=== PATIENT | female | born 1955 | race Caucasian/White ===

== ENCOUNTER → 2019-01-28 | Day surgery (SDC) | payer MEDICARE ==
[2019-01-27 14:42] LABS: BASOPHILS % 0.4 % (0.0-1.0); EOSINOPHILS # (AUTO) 0.1 (0.0-0.4); EOSINOPHILS % 1.1 % (0.0-6.0); HEMATOCRIT 31.5 % (34.2-44.1); HEMOGLOBIN 10.6 g/dL (12.0-16.0); LYMPHOCYTES # (AUTO) 0.8 (1.0-3.2); LYMPHOCYTES % 10.7 % (18.0-39.1); MEAN CORPUSCULAR HEMOGLOBIN 26.3 pg (28-32); MEAN CORPUSCULAR HGB CONC 33.7 g/dL (31-35); MEAN CORPUSCULAR VOLUME 78.2 fL (81-99); MONOCYTES # (AUTO) 0.7 (0.2-0.8); MONOCYTES % 9.4 % (4.4-11.3); NEUTROPHILS # (AUTO) 5.4 (2.1-6.9); NEUTROPHILS % 77.3 % (38.7-80.0); PLATELET COUNT 217 x10e3/uL (140-360); RED BLOOD COUNT 4.03 x10e6/uL (3.6-5.1); RED CELL DISTRIBUTION WIDTH 15.5 % (11.7-14.4)
--- NOTE | 2019-01-27 14:58 | Diagnostic Imaging Report ---
EXAM: CHEST 2 VIEWS DATE: 01/27/2019 1:53 PM INDICATION: Preoperative evaluation COMPARISON: None available. IMPRESSION:: The trachea is midline. There is a focal opacity identified within the right lung base measuring approximately 3.9 cm. Per chart review review, the patient has a history of right lung mass and this opacity may represent the known right lung mass. Recommend correlation with outside imaging or further evaluation with dedicated CT of the chest. Otherwise, there are minimal bibasilar opacities suggestive of atelectasis. There is no evidence for pneumothorax or significant pleural effusion. The cardiomediastinal silhouette and pulmonary vasculature are unremarkable. No acute osseous abnormality is identified. The surrounding soft tissues are unremarkable. Signed by: Dr. Tanmay Patel MD on 01/27/2019 2:55 PM
[2019-01-27 15:01] LABS: ANION GAP 17.1 mmol/L (8-16); BLOOD UREA NITROGEN 12 mg/dL (7-26); BUN/CREATININE RATIO 16 (6-25); CARBON DIOXIDE 20 mmol/L (22-29); CHLORIDE 94 mmol/L (98-107); CREATININE, SERUM 0.77 mg/dL (0.57-1.11); EST GLOMERULAR FILTRATION RATE > 60 ML/MIN (60-); GLUCOSE 100 mg/dL (74-118); POTASSIUM 4.1 mmol/L (3.5-5.1); SODIUM 127 mmol/L (136-145)
[~2019-01-28] MED LIST: ATORVASTATIN CA20 MG PO; BIOTIN2500 MCG PO; BUPIVACAINE 0.25%/EPI 30ML SDV INJ ONE; BUPROPION XL150 MG PO; CENTRUM SILVER1 EAC3 PO; CITRACAL + D E1 EACH PO; CYCLOBENZAPRINE10 MG PO; FENTANYL CITRATE/PF 100MCG/2 ML INJ ONE; GLUCOSAMINE CH1 EAC2 PO; HYDROCHLOROTHIA25 MG PO; KETAMINE HCL INJ 50 MG/ML 10 ML VIAL ONE; LEVOTHYROXINE100 MC1 PO; LIDOCAINE 1% W/EPINEPHRINE 20 ML VIAL ONE; LIDOCAINE HCL 1% 30ML-PF VIAL ONE; LORAZEPAM2 MG/1 M1 PO; METFORMIN HCL500 MG PO; MIDAZOLAM HCL 2 MG/2 ML VIAL ONE; MONTELUKAST SOD10 MG PO; ONDANSETRON HCL INJ 2MG/ML 2ML 2 MG/ML VIAL ONE; PRO AIR INH; PROPOFOL IV EMULSION 10 MG/ML 20 ML VIAL ONE; SERTRALINE HCL50 MG PO; TRAZODONE HCL50 MG PO; VIT B12 SL
--- OUTSIDE RECORDS SUMMARY | 2019-01-28 08:15 | XMS REPORT ---
Author [facility] Address Unknown Phone Unavailable Care Team Providers Care Pharmacovigilance Scientist Name Role Phone Sanaz FONSECA Unavailable Unavailable Payers Payer Name Policy Type Policy Number Effective Date Expiration Date Problems This patient has no known problems. Allergies, Adverse Reactions, Alerts Allergy Name Allergy Type Status Severity Reaction(s) Onset Date Inactive Date Treating Clinician Comments JUAN CARLOS Inhibitors DA Active [place] 2019-01-02 00:00:00 JUAN CARLOS Inhibitors DA Active [place] 2018-09-05 00:00:00 JUAN CARLOS Inhibitors DA Active MO 2018-08-29 00:00:00 JUAN CARLOS INHIBITORS DA Active U 2007-08-01 00:00:00 No Known Contrast Allergies DA Active U 2007-08-01 00:00:00 No Known Food Allergies DA Active U 2007-08-01 00:00:00 No Known Other Allergies DA Active U 2007-08-01 00:00:00 No Known Drug Intolerances DA Active U 2006-12-26 00:00:00 Medications This patient has no known medications. Results Test Description Test Time Test Comments Text Results Atomic Results Result Comments CHEST 2 VIEWS 2019-01-27 14:52:00 [facility] [address] [place], [place] [address] Patient Name: KIYA TUCKER MR #: [id number] : 1955 Age/Sex: 63/F Req #: [id number] Adm Physician: Ordered by: REMIGIO FONSECA MD Report #: [id number] Location: OR Room/Bed: Procedure: [id number] DX/CHEST 2 VIEWS Exam Date: 01/27/19 Exam Time: 1436 REPORT STATUS: Signed EXAM: CHEST 2 VIEWS DATE: 01/27/2019 1:53 PM INDICATION: Preoperative evaluation COMPARISON: None available. IMPRESSION:: The trachea is midline. There is a focal opacity identified within the right lung base measuring approximately 3.9 cm. Per chart review review, the patient has a history of right lung mass and this opacity may represent the known right lung mass. Recommend correlation with outside imaging or further evaluation with dedicated CT of the chest. Otherwise, there are minimal bibasilar opacities suggestive of atelectasis. There is no evidence for pneumothorax or significant pleural effusion. The c ardiomediastinal silhouette and pulmonary vasculature are unremarkable. No acute osseous abnormality is identified. The surrounding soft tissues are unremarkable. Signed by: Dr. Tanmay Patel MD on 01/27/2019 2:55 PM Dictated By: TANMAY PATEL MD [id number] Transcribed By: KOKO on 01/27/19 3082 COPY TO: REMIGIO FONSECA MD
[2019-01-28 12:40] VITALS: BP 127/69
--- NOTE | 2019-01-28 19:41 | Operative Report ---
DATE OF PROCEDURE: 01/28/2019 SURGEON: Jesse August MD PREOPERATIVE DIAGNOSIS: Left axillary adenopathy, rule out malignancy. POSTOPERATIVE DIAGNOSIS: Left axillary adenopathy, rule out malignancy. OPERATION PERFORMED: Left axillary lymphadenectomy. COMMUNITY HEALTH SPECIALIST: PRIMO Rios ANESTHESIA: LOCAL/MAC. COMPLICATIONS: None. ESTIMATED BLOOD LOSS: Minimal. DESCRIPTION OF PROCEDURE: With the patient lying in bed in the supine position under good IV sedation, the left axilla was prepped with Betadine solution and draped in the usual manner. The area overlying the palpable adenopathy was then infiltrated with 1% Xylocaine with epinephrine. An incision was made in the left axilla, carried down through the subcutaneous tissue and through the superficial fascia and the axilla was entered. There were no single large suspicious lymph nodes in the axilla. There were multiple smaller lymph nodes in the axilla. We decided to go ahead and remove the axillary fat pad and this was slowly and carefully done and make sure that we preserved the blood supply and the nerves. The fat pad was removed, containing multiple lymph nodes and sent for pathological examination. Frozen section came back as likely benign, pending permanent section. The whole area was thoroughly irrigated. Perfect hemostasis was ascertained. The fascia was then reapproximated with interrupted sutures of 3-0 Vicryl. The subcutaneous tissue was approximated with 3-0 Vicryl and the skin was closed with subcuticular 5-0 Vicryl. Benzoin, Steri-Strips, and dressings were applied. The sponge, lap, and needle count was correct. The patient tolerated the procedure well and returned to the recovery room in stable condition. MD RONALD Mendoza/JULIENL /[id number] STEVO
== END | disposition home or self-care (01) ==
LOC: OR 08:08
PROVIDERS: ATTEND Surgery
DX: C85.90 Non-Hodgkin lymphoma, unspecified, unspecified site (principal); R06.09 Other forms of dyspnea; I10 Essential (primary) hypertension; E11.9 Type 2 diabetes mellitus without complications; Z88.8 Allergy status to other drugs, medicaments and biological substances; Z01.810 Encounter for preprocedural cardiovascular examination; Z01.812 Encounter for preprocedural laboratory examination; Z01.818 Encounter for other preprocedural examination; Z79.84 Long term (current) use of oral hypoglycemic drugs
CPT/HCPCS: 36415 ×2; 38525; 71046; 80048; 82948; 85025; 88305; 88329; 93005; J2250; J2405; J2704; J3010; 88304; J2001